=== PATIENT | male | born 1985 | race Caucasian/White ===

== ENCOUNTER 2017-07-09 18:17 | Emergency (ER) | payer BC, OTHER ==
[2017-07-09 18:27] VITALS: BP 157/117
[2017-07-09] MEDS ORDERED: Amoxicillin/Clavulanate K 875-125 MG Tab PO ONE (19:20)
--- NOTE | 2017-07-09 19:27 | EDM.PDOC ---
ED HPI GENERAL MEDICAL PROBLEM - General Chief Complaint: Bite:Animal, Insect Stated Complaint: DOG BITES Time Seen by Provider: 07/09/17 19:08 Source of Information: Reports: Patient, Other (Friend) History Limitations: Reports: No Limitations - History of Present Illness INITIAL COMMENTS - FREE TEXT/NARRATIVE: The patient states that his dog was struck by a car, and when the patient went to attend to the dog, the dog bit him several times on both arms, out of panic, around 17:00 tonight. Unfortunately, the patient's dog succumbed to its wounds. The patient states that the dog's vaccinations were up-to-date. The patient states that his last tetanus vaccination was around 3 years ago. The patient's PCP is Dr. Jose Hartman. - Related Data Allergies Allergy/AdvReac Type Severity Reaction Status Date / Time No Known Allergies Allergy Verified 07/09/17 18:27 Home Meds: Home Meds Amoxicillin/Clavulanate K [Augmentin 875-125 MG] 1 tab PO Q12H #13 tablet [Rx] Past Medical History - Past Surgical History HEENT Surgical History: Reports: Oral Surgery ([place] teeth extraction) GI Surgical History: Reports: Appendectomy Social & Family History - Tobacco Use Smoking Status *Q: Former Smoker Tobacco Use Within Last Twelve Months: Smokeless Tobacco (Patient previously chewed, quitting in 2014) Years of Tobacco use: 6 Packs/Tins Daily: 0.3 Month/Year Tobacco Last Used: Quit 2014 Second Hand Smoke Exposure: No - Caffeine Use Caffeine Use: Reports: Soda - Alcohol Use Alcohol Use History: Yes Days Per Week of Alcohol Use: 1 Number of Drinks Per Day: 2 Total Drinks Per Week: 2 Alcohol Use Frequency: Socially - Recreational Drug Use Recreational Drug Use: No - Living Situation & Occupation Living situation: Reports: Single, Alone Occupation: Employed ([employer]) ED ROS GENERAL - Review of Systems Review Of Systems: ROS reveals no pertinent complaints other than HPI. ED EXAM, ANIMAL BITE - Physical Exam Exam: See Below Exam Limited By: No Limitations General Appearance: Alert, WD/WN, No Apparent Distress Extremities: Other (There is an abrasion to the anterior left shoulder, but no puncture wounds or damage to the skin - it looks like a rash. There is an abrasion with associated ecchymosis to the medial upper left arm, but no skin right through. There is an abrasion without significant ecchymosis about the left antecubital fossa area, with no skin breakthrough. There is an abrasion plus a puncture wound to the right medial forearm. Neurovascular status of both upper extremities is intact.) Course - Vital Signs Last Recorded V/S: Last Vital Signs Temp 37.6 C 07/09/17 18:24 Pulse 112 H 07/09/17 18:24 Resp 18 07/09/17 18:24 BP 157/117 H 07/09/17 18:24 Pulse Ox 96 07/09/17 18:24 - Orders/Labs/Meds Meds: Medications Discontinued Medications Generic Name Dose Route Start Last Admin Trade Name Freq PRN Reason Stop Dose Admin Amoxicillin/Clavulanate Potassium 1 tab 07/09/17 19:20 07/09/17 19:28 Augmentin 875 Mg/125 Mg PO 07/09/17 19:21 1 tab ONETIME ONE Administration - Re-Assessments/Exams Free Text/Narrative Re-Assessment/Exam: 07/09/17 19:21 The patient suffered several dog bites to his bilateral arms, but only one puncture wound to his right medial forearm. The wound has been cleaned. We will start him on oral Augmentin, and prescribe a seven-day course, in accordance with current guidelines. Departure - Departure Time of Disposition: 19:27 Disposition: Home, Self-Care 01 Condition: Good Clinical Impression: Dog bite of multiple sites - Discharge Information Prescriptions: Amoxicillin/Clavulanate K [Augmentin 875-125 MG] 1 tab PO Q12H #13 tablet Instructions: Animal Bite, [id number] Referrals: Jose Rosas MD [Primary Care Provider] - Forms: ED Department Discharge Additional Instructions: You were seen in the emergency room after being bitten multiple times by your dog. Because one of your wounds is a puncture wound, you have been started on the antibiotic Augmentin. A prescription for this has been sent to the [facility], [address], across the [address] from [facility]. Take one tablet every 12 hours, starting tomorrow morning, 07/10/2017, as prescribed. Finish the entire prescription unless told otherwise by your doctor. Take [id number] Tylenol or ibuprofen as needed for discomfort. Keep the wound clean with ordinary soap and water. Place a Band-Aid over the puncture wound if it might get dirty. If any suspicion of infection, such as worsening pain, increasing redness, fever , or pus coming from the wound, please follow-up immediately with either Dr. Hartman or in the ER.
== END 2017-07-09 19:38 | disposition home or self-care (01) ==
LOC: JD.ED 18:17
DX: S51.831A Puncture wound without foreign body of right forearm, initial encounter (principal); S40.022A Contusion of left upper arm, initial encounter; Z87.891 Personal history of nicotine dependence; W54.0XXA Bitten by dog, initial encounter
CPT/HCPCS: 99283; A9270